=== PATIENT | female | born 1995 | race Two or more races ===

== ENCOUNTER 2023-06-11 07:00 | Emergency (ER) | payer OTHER ==
[~2023-06-11] VITALS: Ht 165.1 cm; Wt 116.8 kg
[2023-06-11 07:27] VITALS: BP 114/77; TEMP 98.7
[2023-06-11 07:39] VITALS: PULSE 87; RESP 16; O2SAT 100
[2023-06-11] MEDS ORDERED: IBUP1TAB5 PO (09:41)
[2023-06-11] MEDS ORDERED: IBUPROFEN 600 MG TAB PO ONE (09:45)
== END 2023-06-11 09:48 | disposition home or self-care (01) ==
LOC: ER 07:00
DX: S16.1XXA Strain of muscle, fascia and tendon at neck level, initial encounter (principal); S06.0X0A Concussion without loss of consciousness, initial encounter; V89.2XXA Person injured in unspecified motor-vehicle accident, traffic, initial encounter; Y93.89 Activity, other specified; Y92.488 Other paved roadways as the place of occurrence of the external cause; Y99.8 Other external cause status
CPT/HCPCS: 70450; 72125; 81025